=== PATIENT | female | born 1950 | race Caucasian/White ===

== ENCOUNTER 2017-09-28 12:19 | Inpatient (IN) ==
[2017-09-28] MEDS ORDERED: ALBUTEROL/IPRATROPIUM 2.5mg-0.5mg/3ml NEB AEROSOL ONE (13:20)
[2017-09-28] MEDS ORDERED: ONDANSETRON 4 MG/2 ML INJECTION IVP ONE (13:22)
--- NOTE | 2017-09-28 13:23 | Emergency Department Report ---
Asthma HPI - General Stated Complaint: low oxygen, cold cough concestion Time Seen by Provider: 09/28/17 12:57 Source: patient, family Mode of arrival: ambulatory Limitations: no limitations - History of Present Illness HPI Narrative: Jeny Sal is a self proclaimed healthy woman who has not seen a physician since moving to [place] for years because she is healthy. Her only medication is atenolol, eyedrops for glaucoma. She states healthy by taking a variety of herbs. She states that 2 weeks ago and the temperature dropped, she walked outside and immediately felt cold going to her lungs. She knew at that time, she would be sick. She reports "I am allergic to cold". She has been "freezing to ", and has had intermittent low-grade fevers. She has had no appetite for the last 2 weeks. She has been trying to keep up on fluids, taken and about 25-30 ounces per day, although her in the background is shaking his head no. She states that she is monitoring her urine output and has looked clear. She also reports some diarrhea with urgency, as well as urinary urgency. She states she's lost 14 pounds over the last 2 weeks. She is unable to sleep well, and has to sleep sitting up. She reports consult the time, but is unproductive. Her has a "you can hear the rattling in her chest". She denies any sinus congestion or drainage. She denies sore throat or dysphagia. She reports dizziness, and lightheadedness, and near syncope when she stands up or changes position. She feels weak in general. She also reports leg swelling. She denies myalgias, but reports chronic left knee pain. As far as exposures go , she states that her was sick with "the crud" for 6 days before she fell ill. Onset (ago): week(s) (2) Severity: moderate Associated symptoms: dry cough, fever - Related Data Current Asthma Therapy: none Home Medications Medication Instructions Recorded Confirmed Timolol Maleate [Timoptic] 1 drop RIGHT EYE BID 09/28/17 09/28/17 Allergies Allergy/AdvReac Type Severity Reaction Status Date / Time lidocaine Allergy Unknown VERY Unverified 09/28/17 13:20 TINGLY ALL OVER BODY procaine Allergy Unknown TINGLY ALL Unverified 09/28/17 13:20 OVER BODY cephalexin AdvReac Unknown CAUSES UTI Unverified 09/28/17 13:20 VITAMIN K Allergy Unknown WATER Uncoded 09/28/17 13:20 BLISTERS, ANAPHLAXIS Review of Systems All systems: reviewed and negative except as stated Constitutional: Reports: as per HPI Eyes: Reports: as per HPI ENT: Reports: as per HPI Cardiovascular: Denies: chest pain, palpitations Respiratory: Reports: as per HPI, other ( reports that she snores) Gastrointestinal: Reports: as per HPI Genitourinary: Reports: as per HPI Musculoskeletal: Reports: as per HPI Integumentary: Denies: rash, wounds Neurological: Reports: as per HPI Psychiatric: Denies: anxiety, depression Endocrine: Reports: heat or cold intolerance Hematological/Lymphatic: Denies: easy bruising Allergic/Immunologic: Denies: urticaria PFSH Glaucoma Surgical History: SHAYY/BSO age 27. Rectal fistula repair. Lumpectomy in 1991 Family History: Maternal grandmother had kidney cancer. Mother might have had COPD No history of heart disease in the family - Social History Smoking status: Never smoker Substance use type: does not use Alcohol intake frequency: does not drink Household members: spouse Current occupational status: retired Physical Exam - Limitations Limitations: no limitations - General General appearance: alert, in no apparent distress - Head Head exam: atraumatic - Eye Eye exam: Present: PERRL - ENT ENT exam: Present: normal exam - Neck Neck exam: Present: normal inspection - Respiratory Respiratory exam: Present: wheezes (rare), other (coarse and decreased breath sounds) - Cardiovascular Cardiovascular exam: Present: regular rate - Abdominal Exam Abdominal exam: Present: soft, normal bowel sounds. Absent: tenderness, guarding - Extremities Exam Extremities exam: Present: normal inspection - Skin Skin exam: Present: warm, dry, intact - Neurological Exam Neurological exam: Present: alert, oriented X3, CN II-XII intact - Psychiatric Psychiatric exam: Present: normal affect Course Course Narrative: Sepsis w/u DuoNeb Zofran IVF - Consultations Consultation #1: Dr. Hahn Time: 14:42 (Admit to medical, dx CAP) Vital Signs Temperature 100.2 F 09/28/17 12:25 Pulse Rate 110 H 09/28/17 12:25 Respiratory Rate 20 09/28/17 12:25 Blood Pressure 180/79 H 09/28/17 12:25 Pulse Oximetry 88 L 09/28/17 12:25 Temperature 100.2 F 09/28/17 12:25 Pulse Rate 110 H 09/28/17 12:25 Respiratory Rate 20 09/28/17 12:25 Blood Pressure 180/79 H 09/28/17 12:25 Pulse Oximetry 88 L 09/28/17 12:25 Dyspnea - MDM Narrative Medical decision making narrative: CXR = LLL pneumonia WBC elevated 14, K 3.0 --> oral KDur given (only 20 mEq d/t nausea and very little PO intake) mild temp at 100.2; tachycardic; hypoxic on room air 88% Rocephin and azithro ordered Will admit to hospitalists - Differential Diagnosis Differential diagnosis: Likely: Pneumonia - Lab Data Attestation: I reviewed the patient's lab results. Result diagrams: 09/28/17 13:53 09/28/17 13:53 Lab Results 09/28/17 09/28/17 09/28/17 Range/Units 13:53 13:53 13:53 WBC 14.0 H (4.5-11.0) T/MM3 RBC 4.20 (4.00-5.20) M/MM3 Hgb 13.1 (12-16) GM/DL Hct 39.3 (36-46) % MCV 93.6 (80-100) UM3 MCH 31.2 (26-34) UUG MCHC 33.3 (31-37) GM/DL RDW Std Deviation 43.2 (36.9-50.2) FL Plt Count 274 (130-400) T/MM3 MPV 9.7 (9.4-12.4) UM3 Immature Gran % (Auto) Not performed Neut % (Auto) Not performed Lymph % (Auto) Not performed Union % (Auto) Not performed Eos % (Auto) Not performed Baso % (Auto) Not performed Neut # (Auto) Not performed Lymph # (Auto) Not performed Union # (Auto) Not performed Eos # (Auto) Not performed Baso # (Auto) Not performed Abs Immat Gran (auto) Not performed Neutrophils % (Manual) 72.0 H (33-66) % Band Neutrophils % 7.0 H (0-6) % Lymphocytes % (Manual) 12.0 L (23-45) % Monocytes % (Manual) 9.0 (0-9.0) % Neutrophils # (Manual) 10.1 H (1.8-7.7) T/MM3 Band Neutrophils # 1.0 T/MM3 Lymphocytes # (Manual) 1.7 (1-4.8) T/MM3 Monocytes # (Manual) 1.3 H (0-0.8) T/MM3 RBC Morph Comment Normal Turbidity < 20 (0-20) Sodium 139 (134-144) MEQ/L Potassium 3.0 L (3.6-5) MEQ/L Chloride 99 (98-107) MEQ/L Carbon Dioxide 29 (22-30) MEQ/L Anion Gap 11 (5-15) MEQ/L BUN 11.0 (7-17) MG/DL Creatinine 0.7 (0.7-1.2) MG/DL GFR Calculation 83 BUN/Creatinine Ratio 16 (6-26) RATIO Glucose 118 H (65-110) MG/DL Calculated Osmolality 268 (261-280) MOSM/KG Calcium 9.3 (8.4-10.2) MG/DL Magnesium (1.6-2.3) MG/DL Total Bilirubin 0.90 (0.20-1.30) MG/DL Icterus Index < 2 (0-7) AST 89 H (14-36) U/L ALT 104 H (9-52) U/L Alkaline Phosphatase 102 (38-126) U/L Total Protein 8.4 H (6.3-8.2) G/DL Albumin 4.3 (3.5-5.0) G/DL Globulin 4.1 H (2.4-3.6) G/DL Albumin/Globulin Ratio 1.0 L (1.1-2.2) RATIO Plasma Lactate 1.3 (0.6-2.2) MMOL/L Procalcitonin 0.38 NG/ML Specimen Hemolysis < 15 (0-25) 09/28/17 Range/Units 13:53 WBC (4.5-11.0) T/MM3 RBC (4.00-5.20) M/MM3 Hgb (12-16) GM/DL Hct (36-46) % MCV (80-100) UM3 MCH (26-34) UUG MCHC (31-37) GM/DL RDW Std Deviation (36.9-50.2) FL Plt Count (130-400) T/MM3 MPV (9.4-12.4) UM3 Immature Gran % (Auto) Neut % (Auto) Lymph % (Auto) Union % (Auto) Eos % (Auto) Baso % (Auto) Neut # (Auto) Lymph # (Auto) Union # (Auto) Eos # (Auto) Baso # (Auto) Abs Immat Gran (auto) Neutrophils % (Manual) (33-66) % Band Neutrophils % (0-6) % Lymphocytes % (Manual) (23-45) % Monocytes % (Manual) (0-9.0) % Neutrophils # (Manual) (1.8-7.7) T/MM3 Band Neutrophils # T/MM3 Lymphocytes # (Manual) (1-4.8) T/MM3 Monocytes # (Manual) (0-0.8) T/MM3 RBC Morph Comment Turbidity (0-20) Sodium (134-144) MEQ/L Potassium (3.6-5) MEQ/L Chloride (98-107) MEQ/L Carbon Dioxide (22-30) MEQ/L Anion Gap (5-15) MEQ/L BUN (7-17) MG/DL Creatinine (0.7-1.2) MG/DL GFR Calculation BUN/Creatinine Ratio (6-26) RATIO Glucose (65-110) MG/DL Calculated Osmolality (261-280) MOSM/KG Calcium (8.4-10.2) MG/DL Magnesium 2.4 H (1.6-2.3) MG/DL Total Bilirubin (0.20-1.30) MG/DL Icterus Index (0-7) AST (14-36) U/L ALT (9-52) U/L Alkaline Phosphatase (38-126) U/L Total Protein (6.3-8.2) G/DL Albumin (3.5-5.0) G/DL Globulin (2.4-3.6) G/DL Albumin/Globulin Ratio (1.1-2.2) RATIO Plasma Lactate (0.6-2.2) MMOL/L Procalcitonin NG/ML Specimen Hemolysis (0-25) - Radiology Data Attestation: I reviewed the patient's radiology results. CXR shows LLL infiltrate Critical Care Time Critical Care Time: No Disposition Clinical Impression: CAP (community acquired pneumonia) Disposition: 02 To [facility] [place] Acute Care Condition: Stable Prescriptions: No Action Timolol Maleate [Timoptic] 1 drop RIGHT EYE BID Time of Disposition: 15:01 - Seen By: kathryn
--- NOTE | 2017-09-28 13:48 | XRay Report ---
INDICATION: soa, fever, cough PROCEDURE: CHEST 2-VIEWS UPRIGHT (PA & LAT) Encounter: Initial COMPARISON: None FINDINGS: Dense consolidation in the posterior left lower lobe with density in the retrocardiac region and overlying the lower thoracic spine. Right lung appears clear except for a calcified granuloma in the right middle lobe. No pneumothorax. Trace left effusion. Heart size and mediastinal contours are within normal limits. Pulmonary vascularity is normal. Impression: Left lower lobe pneumonia. .
[2017-09-28] MEDS ORDERED: AZITHROMYCIN IV 500 MG in NS 250ml 250 ML IV ONE (14:33)
[2017-09-28] MEDS ORDERED: CEFTRIAXONE 1 G INJECTION IM SCH (14:45)
[2017-09-28] MEDS ORDERED: CEFTRIAXONE (ER USE ONLY) 1 GM in NS 100 ML IV ONE (14:56)
--- NOTE | 2017-09-28 16:20 | History & Physical Report ---
History of Present Illness Date: 09/28/17 Chief complaint: shortness of breath HPI: Jeny is a 67 yo female who presents to ER with 2 wk h/o SOA and progressively worsening cough. with similar sxs recently. She's tried multiple OTC remedies with no relief. She c/o exhaustion, chills, cough, nausea, diarrhea and anorexia. She does not have a PCP as she moved here 4 years ago from [place] and has not needed to seek healthcare. She usually uses herbal remedies. She denies any past medical problems. States she sees Dr. Iqbal for "prevention of glaucoma." Review of Systems All systems PM: 10-point ROS was reviewed, no additional remarkable complaints except Review of systems: exhausted, fever, chills, cough, SOA, achy Past Medical History Patient Stated Medical History Glaucoma Surgical History: SHAYY/BSO age 27 secondary to endometriosis. Rectal fistula repair. Lumpectomy (R)in 1991 (no cancer) Family History: Father age 59 in an accident Mother - of complications from "asthma" Sister - fibromyalgia and multiple neck and back surgeries Family History Updates: updated - Social History Smoking status: Never smoker Substance use type: does not use Alcohol intake frequency: does not drink Housing: house Household members: spouse Current occupational status: retired Social history: No PCP. Uses herbal remedies. Medications Home Medications Medication Instructions Recorded Confirmed Type Timolol Maleate [Timoptic] 1 drop RIGHT EYE BID 09/28/17 09/28/17 History Allergies Allergy/AdvReac Type Severity Reaction Status Date / Time lidocaine Allergy Unknown VERY Unverified 09/28/17 13:20 TINGLY ALL OVER BODY procaine Allergy Unknown TINGLY ALL Unverified 09/28/17 13:20 OVER BODY cephalexin AdvReac Unknown CAUSES UTI Unverified 09/28/17 13:20 VITAMIN K Allergy Unknown WATER Uncoded 09/28/17 13:20 BLISTERS, ANAPHLAXIS Exam Vital Signs: Temperature 100.2 F 09/28/17 12:25 Pulse Rate 98 09/28/17 15:45 Respiratory Rate 18 09/28/17 14:53 Blood Pressure 156/77 H 09/28/17 14:40 Pulse Oximetry 92 09/28/17 15:45 - Constitutional Present: no acute distress, well nourished, well developed - Routine HEENT Exam Head: Present: normocephalic, atraumatic Eye: Present: EOMI, PERRL ENT: Present: mucous membranes moist, dentition normal Comments: yellow drainage from L eye - Routine Neck Exam Present: supple. Absent: lymphadenopathy, thyromegaly - Routine Respiratory Exam Absent: wheezes Comments: coarse when auscultated anteriorly. Occ end exp wheeze L mid-lung posteriorly. Loose sounding cough. - Routine Cardiovascular Exam Present: RRR. Absent: murmur - Routine Abdominal Exam Present: soft, normoactive bowel sounds, non distended. Absent: tenderness - Routine Extremities Exam Present: no edema, normal capillary refill - Routine Skin Exam Present: dry, warm - Routine Neurological Exam Present: alert, oriented X3, CN II-XII intact - Routine Psychiatric Exam Present: normal affect, cooperative Results - Labs CBC & Chem 7: 09/28/17 13:53 09/28/17 13:53 Labs: Laboratory Tests 09/28/17 09/28/17 09/28/17 13:53 13:53 14:44 Magnesium 2.4 H AST 89 H ALT 104 H Influenza A (H3) PCR Detected A* Laboratory Tests 09/28/17 09/28/17 09/28/17 13:53 13:53 13:53 Band Neutrophils % 7.0 H Plasma Lactate 1.3 Procalcitonin 0.38 - Imaging and Cardiology Chest x-ray Additional comments: Date of Exam: 09/28/17 Ordering Provider: Belinda Barajas APRN Type of Exam(s): XR chest 2V Reason for Exam(s): soa, fever, cough INDICATION: soa, fever, cough PROCEDURE: CHEST 2-VIEWS UPRIGHT (PA & LAT) Encounter: Initial COMPARISON: None FINDINGS: Dense consolidation in the posterior left lower lobe with density in the retrocardiac region and overlying the lower thoracic spine. Right lung appears clear except for a calcified granuloma in the right middle lobe. No pneumothorax. Trace left effusion. Heart size and mediastinal contours are within normal limits. Pulmonary vascularity is normal. Impression: Left lower lobe pneumonia. Assessment and Plan (1) CAP (community acquired pneumonia) Current visit: Yes Status: Acute Assessment and Plan: Assessment Sepsis - based on pulmonary source of infection and SIRS criteria of temp of 101.2, tachycardia and leukocytosis Qsofa score 1 Acute respiratory failure with hypoxia requiring 2L O2. Initial sats on RA 88%. Community acquired pneumonia - L lower lobe Influenza A Hypokalemia - POA Plan Admit to IP under hospitalist service (Dr Hahn attending) for treatment of CAP. Stay expected to exceed 2 overnights due to hypoxia and infection. Labs and CXR performed in ER. 1st dose of atbx given in ER. 1L NS given in ER. Rocephin and Zithromax for antimicrobial coverage. Collect sputum culture. Will defer tx with Tamiflu given the length of time she has been ill. Duonebs, acapella, cough syrup PRN Replace potassium. Run fluids at 100ml/hr for rehydration. Repeat CBC and BMP in am to follow WBC and electrolytes. Patient wishes to be a DNR. She will need to establish with a PCP on dismissal. DVT Prophylaxis: SCD's Resuscitation Status: Do Not Resuscitate - Physician Narrative Physician: Jorge Luis Hahn MD Narrative: Date: 09/28/17 Time: 1616 I have independently interviewed and examined pt. Chart reviewed. Case discussed with PA. Care plan developed with my supervision; agree with above. Patient says she has been struggling with cough, chills, dyspnea for 15 days. She reports having some nausea and diarrhea the past 3-4 days. She is aware she has gotten very weak and sometimes can't stand. Lungs: coarse. CV: regular. ABD: s/nt/nd. MSE: awake alert appropriate Plan: Inpatient admission for CAP. Ceftriaxone and azithromycin started in ER. Duonebs available. Zofran for nausea. K+ replaced in ER. Recheck in AM. PT/OT for debilitation. Home medication (Timoptic) reviewed and continued. Lovenox for DVT ppx. Hospital Course Summary Disclaimer: The visit summary below is not to be considered part of the above Progress Note. Hospital Course: Assessment Sepsis - based on pulmonary source of infection and SIRS criteria of temp of 101.2, tachycardia and leukocytosis Qsofa score 1 Acute respiratory failure with hypoxia requiring 2L O2. Initial sats on RA 88%. Community acquired pneumonia - L lower lobe Influenza A Hypokalemia - POA 09/28/17 - Hospital admission Admit to IP under hospitalist service (Dr Hahn attending) for treatment of CAP. Stay expected to exceed 2 overnights due to hypoxia and infection. Labs and CXR performed in ER. 1st dose of atbx given in ER. 1L NS given in ER. Rocephin and Zithromax for antimicrobial coverage. Collect sputum culture. Will defer tx with Tamiflu given the length of time she has been ill. Duonebs, acapella, cough syrup PRN Replace potassium. Run fluids at 100ml/hr for rehydration. Repeat CBC and BMP in am to follow WBC and electrolytes. Patient wishes to be a DNR. She will need to establish with a PCP on dismissal.
[2017-09-28 16:25] VITALS: BMI 33.7
[2017-09-28] MEDS: NS 1,000 ML IV SCH (17:22)
[2017-09-28] MEDS ORDERED: ONDANSETRON 4 MG/2 ML INJECTION IVP PRN (17:34)
[2017-09-28] MEDS: ENOXAPARIN 40 MG/0.4 ML INJECTION SQ SCH (18:49)
[2017-09-28] MEDS: ALBUTEROL/IPRATROPIUM 2.5mg-0.5mg/3ml NEB AEROSOL SCH (18:55)
[2017-09-28] MEDS: GUAIFENESIN/D-METHORPHAN 600mg/30mg TABLET PO SCH (21:45)
[2017-09-28] MEDS: ACETAMINOPHEN 325 MG TABLET PO PRN (22:21)
[2017-09-29] MEDS: NS 1,000 ML IV SCH ×2 (04:37→14:41)
[2017-09-29] MEDS: ALBUTEROL/IPRATROPIUM 2.5mg-0.5mg/3ml NEB AEROSOL SCH ×4 (07:37→21:10)
[2017-09-29] MEDS: CEFTRIAXONE 1 G in NS 100 ML IV SCH (08:31)
[2017-09-29] MEDS: GUAIFENESIN/D-METHORPHAN 600mg/30mg TABLET PO SCH ×2 (08:31→21:46)
[2017-09-29] MEDS: ENOXAPARIN 40 MG/0.4 ML INJECTION SQ SCH (08:31)
[2017-09-29] MEDS: AZITHROMYCIN 250 MG TABLET PO SCH (08:32)
--- NOTE | 2017-09-29 10:42 | Progress Note ---
- Date 09/29/17 Subjective: Patient is seen sitting up in bed finishing breakfast. She states she had a very rough night. She had a high temperature overnight. She had trouble breathing. Continues to have a nonproductive cough which is very bothersome to her. She continues on 2 L of oxygen. She reports she does have an appetite. No chest pain, nausea or vomiting. Objective Vital signs: Temperature 97.2 F 09/29/17 08:00 Pulse Rate 96 09/29/17 08:00 Respiratory Rate 20 09/29/17 08:00 Blood Pressure 127/68 09/29/17 08:00 Pulse Oximetry 90 09/29/17 08:00 Height/Weight/BMI: Height 1.65 m Weight 91.3 kg Body Mass Index 33.7 - Constitutional Present: no acute distress, well nourished, well developed - Routine HEENT Exam Head: Present: normocephalic, atraumatic - Routine Respiratory Exam Comments: Coarse breath sounds throughout. - Routine Cardiovascular Exam Present: RRR. Absent: murmur - Routine Abdominal Exam Present: soft, normoactive bowel sounds, non distended. Absent: tenderness - Routine Extremities Exam Present: no edema, normal capillary refill - Routine Skin Exam Present: dry, warm - Routine Neurological Exam Present: alert, oriented X3 - Routine Lymphatic Exam Lymphatic: Absent: adenopathy - Routine Psychiatric Exam Present: normal affect, cooperative Results - Labs CBC & Chem 7: 09/29/17 04:27 09/29/17 04:27 Assessment and Plan (1) CAP (community acquired pneumonia) Current visit: Yes Status: Acute Assessment and Plan: Assessment Sepsis - based on pulmonary source of infection and SIRS criteria of temp of 101.2, tachycardia and leukocytosis Qsofa score 1 Acute respiratory failure with hypoxia requiring 2L O2. Initial sats on RA 88%. Community acquired pneumonia - L lower lobe Influenza A Hypokalemia - POA Plan Continue Rocephin and Zithromax for antimicrobial coverage. Has been unable to produce a specimen for sputum culture. Tx with Tamiflu deferred given length of her symptoms prior to admission. Continue Duonebs, acapella, O2 PRN, add Pulmicort. Leukocytosis is improving. CBC in a.m. Potassium 3.0-->3.2 today despite 60 mEq potassium given yesterday.. Will give 40 mEq potassium now and repeat again at lunch. Repeat CMP in a.m. to follow electrolytes and elevated LFTs on admission. DVT Prophylaxis: SCD's, Lovenox Resuscitation Status: Do Not Resuscitate - Physician Narrative Physician: Jorge Luis Hahn MD Narrative: Date: 09/29/17 Time: 1650 I have independently interviewed and examined pt. Chart reviewed. Case discussed with PA. Care plan developed with my supervision; agree with above. Patient says she had a rough night b/c of fever but is feeling a little better today. No change in cough. She refused cough meds earlier. Lungs: coarse. CV: regular. ABD: s/nt/nd. MSE: awake alert appropriate Plan: Ceftriaxone and azithromycin. Duonebs, Pulmicort, Mucinex available. Zofran for nausea. K+ replacement. PT/OT for debilitation. Lovenox for DVT ppx. Hospital Course Summary Disclaimer: The visit summary below is not to be considered part of the above Progress Note. Hospital Course: Assessment Sepsis - based on pulmonary source of infection and SIRS criteria of temp of 101.2, tachycardia and leukocytosis Qsofa score 1 Acute respiratory failure with hypoxia requiring 2L O2. Initial sats on RA 88%. Community acquired pneumonia - L lower lobe Influenza A Hypokalemia - POA 09/28/17 - Hospital admission Admit to IP under hospitalist service (Dr Hahn attending) for treatment of CAP. Stay expected to exceed 2 overnights due to hypoxia and infection. Labs and CXR performed in ER. 1st dose of atbx given in ER. 1L NS given in ER. Rocephin and Zithromax for antimicrobial coverage. Collect sputum culture. Will defer tx with Tamiflu given the length of time she has been ill. Duonebs, acapella, cough syrup PRN Replace potassium. Run fluids at 100ml/hr for rehydration. Repeat CBC and BMP in am to follow WBC and electrolytes. Patient wishes to be a DNR. She will need to establish with a PCP on dismissal. 09/29/17 Continue Rocephin and Zithromax for antimicrobial coverage. Has been unable to produce a specimen for sputum culture. Tx with Tamiflu deferred given length of her symptoms prior to admission. Continue Duonebs, acapella, O2 PRN, add Pulmicort. Leukocytosis is improving. CBC in a.m. Potassium 3.0-->3.2 today despite 60 mEq potassium given yesterday.. Will give 40 mEq potassium now and repeat again at lunch. Repeat CMP in a.m. to follow electrolytes and elevated LFTs on admission.
[2017-09-29] MEDS: BUDESONIDE INH.SOLN 0.5mg/2ml NEB AEROSOL SCH ×2 (11:40→21:10)
[2017-09-29] MEDS: TIMOLOL 0.5% EYE DROPS 5 ML EACH EYE SCH (23:38)
[2017-09-30] MEDS: NS 1,000 ML IV SCH ×2 (00:27→09:46)
[2017-09-30] MEDS: PROMETHAZINE/CODEINE ORAL LIQUID 5ml PO PRN ×2 (01:35→20:32)
[2017-09-30] MEDS: ENOXAPARIN 40 MG/0.4 ML INJECTION SQ SCH (08:43)
[2017-09-30] MEDS: AZITHROMYCIN 250 MG TABLET PO SCH (08:43)
[2017-09-30] MEDS: TIMOLOL 0.5% EYE DROPS 5 ML EACH EYE SCH ×2 (08:43→20:22)
[2017-09-30] MEDS: GUAIFENESIN/D-METHORPHAN 600mg/30mg TABLET PO SCH ×2 (08:43→20:22)
[2017-09-30] MEDS: CEFTRIAXONE 1 G in NS 100 ML IV SCH (08:43)
[2017-09-30] MEDS: BUDESONIDE INH.SOLN 0.5mg/2ml NEB AEROSOL SCH ×2 (10:04→19:36)
[2017-09-30] MEDS: ALBUTEROL/IPRATROPIUM 2.5mg-0.5mg/3ml NEB AEROSOL SCH ×4 (10:04→19:36)
[2017-09-30] MEDS: ACETAMINOPHEN 325 MG TABLET PO PRN ×2 (11:54→21:22)
--- NOTE | 2017-09-30 14:52 | Progress Note ---
- Date 09/30/17 Subjective: Jeny is seen around lunchtime, resting in bed. She states that she has been extremely fatigued as she has been sick for over 2 weeks now and not sleeping well until last night. She is currently on 0.5 L by nasal canula. She state that her appetite is improving. She is working on ambulation 3 times a day as she feels extremely weak. Objective Vital signs: Temperature 100.4 F 09/30/17 07:46 Pulse Rate 86 09/30/17 12:00 Respiratory Rate 18 09/30/17 12:00 Blood Pressure 156/80 H 09/30/17 12:00 Pulse Oximetry 92 09/30/17 12:00 Height/Weight/BMI: Height 1.65 m Weight 92.3 kg Body Mass Index 33.7 - Constitutional Present: no acute distress, well nourished, well developed - Routine HEENT Exam Eye: Present: EOMI ENT: Present: mucous membranes moist, dentition normal - Routine Respiratory Exam Present: CTA bilaterally. Absent: wheezes - Routine Cardiovascular Exam Present: RRR, S1, S2. Absent: murmur - Routine Abdominal Exam Present: soft, normoactive bowel sounds, non distended. Absent: tenderness - Routine Extremities Exam Present: normal capillary refill - Routine Skin Exam Present: dry, warm - Routine Neurological Exam Present: alert, oriented X3, CN II-XII intact - Routine Lymphatic Exam Lymphatic: Absent: adenopathy - Routine Psychiatric Exam Present: normal affect, cooperative Results - Labs CBC & Chem 7: 09/30/17 04:39 09/30/17 04:39 Microbiology Results: Microbiology 09/29/17 19:10 Sputum, Expectorated Gram Stain - Final 09/29/17 19:10 Sputum, Expectorated Sputum Culture - Preliminary Culture Initiated - Results Pending Assessment and Plan (1) CAP (community acquired pneumonia) Current visit: Yes Status: Acute Assessment and Plan: Assessment Sepsis - based on pulmonary source of infection and SIRS criteria of temp of 101.2, tachycardia and leukocytosis Qsofa score 1 Acute respiratory failure with hypoxia requiring 2L O2. Initial sats on RA 88%. Community acquired pneumonia - L lower lobe Influenza A Hypokalemia - POA Plan Continue Rocephin and Zithromax for antimicrobial coverage. Continue Duonebs, acapella, and Pulmicort. Working on weaning down oxygen Continued ambulation TID. Concern about weakness as she lives independently with . Labs reviewed, leukocytosis resolved, hypokalemia-improved, continued elevated LFTs - Physician Narrative Physician: Jorge Luis Hahn MD Narrative: Date: 09/30/17 Time: 1600 I have independently interviewed and examined pt. Chart reviewed. Case discussed with EVENT SALES ASSISTANT. Care plan developed with my supervision; agree with above. Patient c/o fever earlier. Temp was 100.4 twice this AM. Better after Tylenol. She says she feels weaker today after walking 3 times a day. Lungs: clearing. CV: regular. ABD: s/nt/nd. MSE: awake alert appropriate Plan: Ceftriaxone and azithromycin. Duonebs, Pulmicort, Mucinex available. Titrating O2. Given continued fevers, repeat CXR. PT/OT for debilitation. Encourage activity. Lovenox for DVT ppx. Hospital Course Summary Disclaimer: The visit summary below is not to be considered part of the above Progress Note. Hospital Course: Assessment Sepsis - based on pulmonary source of infection and SIRS criteria of temp of 101.2, tachycardia and leukocytosis Qsofa score 1 Acute respiratory failure with hypoxia requiring 2L O2. Initial sats on RA 88%. Community acquired pneumonia - L lower lobe Influenza A Hypokalemia - POA 09/28/17 - Hospital admission Admit to IP under hospitalist service (Dr Hahn attending) for treatment of CAP. Stay expected to exceed 2 overnights due to hypoxia and infection. Labs and CXR performed in ER. 1st dose of atbx given in ER. 1L NS given in ER. Rocephin and Zithromax for antimicrobial coverage. Collect sputum culture. Will defer tx with Tamiflu given the length of time she has been ill. Duonebs, acapella, cough syrup PRN Replace potassium. Run fluids at 100ml/hr for rehydration. Repeat CBC and BMP in am to follow WBC and electrolytes. Patient wishes to be a DNR. She will need to establish with a PCP on dismissal. 09/29/17 Continue Rocephin and Zithromax for antimicrobial coverage. Has been unable to produce a specimen for sputum culture. Tx with Tamiflu deferred given length of her symptoms prior to admission. Continue Duonebs, acapella, O2 PRN, add Pulmicort. Leukocytosis is improving. CBC in a.m. Potassium 3.0-->3.2 today despite 60 mEq potassium given yesterday.. Will give 40 mEq potassium now and repeat again at lunch. Repeat CMP in a.m. to follow electrolytes and elevated LFTs on admission. 09/30/17 Continue Rocephin and Zithromax for antimicrobial coverage. Continue Duonebs, acapella, and Pulmicort. Working on weaning down oxygen Continued ambulation TID. Concern about weakness as she lives independently with . Labs reviewed, leukocytosis resolved, hypokalemia-improved, continued elevated LFTs
[2017-10-01] MEDS: BUDESONIDE INH.SOLN 0.5mg/2ml NEB AEROSOL SCH ×2 (07:20→20:03)
[2017-10-01] MEDS: ALBUTEROL/IPRATROPIUM 2.5mg-0.5mg/3ml NEB AEROSOL SCH ×4 (07:20→20:03)
[2017-10-01] MEDS: CEFTRIAXONE 1 G in NS 100 ML IV SCH (08:38)
[2017-10-01] MEDS: GUAIFENESIN/D-METHORPHAN 600mg/30mg TABLET PO SCH ×2 (08:38→20:23)
[2017-10-01] MEDS: TIMOLOL 0.5% EYE DROPS 5 ML EACH EYE SCH ×2 (08:38→20:23)
[2017-10-01] MEDS: AZITHROMYCIN 250 MG TABLET PO SCH (08:39)
[2017-10-01] MEDS: ENOXAPARIN 40 MG/0.4 ML INJECTION SQ SCH (08:39)
--- NOTE | 2017-10-01 10:01 | XRay Report ---
Indication: pneumonia PROCEDURE: XR chest 1V: Encounter: Initial Comparison: September 28, 2017 Findings: Left lower lobe consolidation remains with increasing small left effusion. Right lower lobe granuloma. No pneumothorax. Heart size and mediastinal contours are stable. Pulmonary vascularity is normal. Impression: Increasing small left effusion. .
--- NOTE | 2017-10-01 14:53 | Progress Note ---
- Date 10/01/17 Subjective: Jeny is seen today in follow up. She continues to feel weak and deconditioned. Is motivated to improve, is walking in with family assistance. Reports she continues to run a fever of 101, and does not feel well if it is allowed to persist. Had fairly severe fatigue last night, which is now better. Still with persistent cough, SOA, wheezing. Objective Vital signs: Temperature 100.7 F H 10/01/17 11:24 Pulse Rate 85 10/01/17 11:24 Respiratory Rate 22 10/01/17 11:50 Blood Pressure 145/86 H 10/01/17 11:24 Pulse Oximetry 96 10/01/17 11:50 Height/Weight/BMI: Height 1.65 m Weight 92.9 kg Body Mass Index 33.7 - Constitutional Present: mild distress, obese, cooperative - Routine HEENT Exam Head: Present: normocephalic, atraumatic Eye: Present: EOMI, PERRL, normal accommodation ENT: Present: mucous membranes moist - Routine Respiratory Exam Present: dyspnea, decreased breath sounds (Left base), wheezes (Left exp wheezes ) Comments: Fairly good air movement despite illness. Coarse, nonproductive cough. - Routine Cardiovascular Exam Present: RRR, S1, S2, no murmur - Routine Abdominal Exam Present: soft, normoactive bowel sounds, non distended, non tender - Routine Extremities Exam Present: no edema, non tender. Absent: cyanosis, clubbing - Routine Skin Exam Present: intact, dry, warm - Routine Neurological Exam Present: alert, oriented X3, moving all extremities - Routine Psychiatric Exam Present: normal affect, normal thought process, cooperative Results - Labs CBC & Chem 7: 10/01/17 04:12 10/01/17 04:12 Microbiology Results: Microbiology 09/29/17 19:10 Sputum, Expectorated Gram Stain - Final 09/29/17 19:10 Sputum, Expectorated Sputum Culture - Preliminary Normal Resp Kristin incl. Yeast - Imaging and Cardiology Chest x-ray Status: image reviewed by me Additional comments: PROCEDURE: XR chest 1V: Encounter: Initial Comparison: September 28, 2017 Findings: Left lower lobe consolidation remains with increasing small left effusion. Right lower lobe granuloma. No pneumothorax. Heart size and mediastinal contours are stable. Pulmonary vascularity is normal. Impression: Increasing small left effusion. Assessment and Plan (1) CAP (community acquired pneumonia) Current visit: Yes Status: Acute Assessment and Plan: Assessment Sepsis - based on pulmonary source of infection and SIRS criteria of temp of 101.2, tachycardia and leukocytosis Qsofa score 1 Acute respiratory failure with hypoxia requiring 2L O2. Initial sats on RA 88%. Community acquired pneumonia - L lower lobe Influenza A Hypokalemia - POA Possible pleural effusion Hypertension Plan 10/01/17 She continues to run intermittent fevers. CXR reviewed- left pleural effusion is increasing. Worsening bandemia today as well. Given persistent fever, concerned with loculated effusion/empyema. Will assess PA & Lat CXR in AM, but may need CT of chest. Will DC azithro and add Levaquin for broader coverage. Assess S.Pneumo Urine. Continue nebs, Acapella, O2. Replace KCL today. BP trending up- Add low dose Norvasc for now. Labs in AM. DVT Prophylaxis: Lovenox Resuscitation Status: Do Not Resuscitate - Physician Narrative Physician: Jorge Luis Hahn MD Narrative: Date: 10/01/17 Time: 1540 I have independently interviewed and examined pt. Chart reviewed. Case discussed with PROFESSOR OF SURGERY. Care plan developed with my supervision; agree with above. Patient c/o fever earlier. Temp was 101.4 last night. Temp of 100.7 earlier today. Says she is feeling better. Thinks her breathing is improved. Cough is about the same. Planning to get 3 walks in today. Lungs: clearing. CV: regular. ABD: s/nt/nd. MSE: awake alert appropriate Plan: Ceftriaxone and Levaquin. Duonebs, Pulmicort, Mucinex available. Titrating O2. CXR showed small effusion, no worsening of pneumonia. PT/OT for debilitation. Encourage activity. Replace K. Lovenox for DVT ppx. Hospital Course Summary Disclaimer: The visit summary below is not to be considered part of the above Progress Note. Hospital Course: Assessment Sepsis - based on pulmonary source of infection and SIRS criteria of temp of 101.2, tachycardia and leukocytosis Qsofa score 1 Acute respiratory failure with hypoxia requiring 2L O2. Initial sats on RA 88%. Community acquired pneumonia - L lower lobe Influenza A Hypokalemia - POA 09/28/17 - Hospital admission Admit to IP under hospitalist service (Dr Hahn attending) for treatment of CAP. Stay expected to exceed 2 overnights due to hypoxia and infection. Labs and CXR performed in ER. 1st dose of atbx given in ER. 1L NS given in ER. Rocephin and Zithromax for antimicrobial coverage. Collect sputum culture. Will defer tx with Tamiflu given the length of time she has been ill. Duonebs, acapella, cough syrup PRN Replace potassium. Run fluids at 100ml/hr for rehydration. Repeat CBC and BMP in am to follow WBC and electrolytes. Patient wishes to be a DNR. She will need to establish with a PCP on dismissal. 09/29/17 Continue Rocephin and Zithromax for antimicrobial coverage. Has been unable to produce a specimen for sputum culture. Tx with Tamiflu deferred given length of her symptoms prior to admission. Continue Duonebs, acapella, O2 PRN, add Pulmicort. Leukocytosis is improving. CBC in a.m. Potassium 3.0-->3.2 today despite 60 mEq potassium given yesterday.. Will give 40 mEq potassium now and repeat again at lunch. Repeat CMP in a.m. to follow electrolytes and elevated LFTs on admission. 09/30/17 Continue Rocephin and Zithromax for antimicrobial coverage. Continue Duonebs, acapella, and Pulmicort. Working on weaning down oxygen Continued ambulation TID. Concern about weakness as she lives independently with . Labs reviewed, leukocytosis resolved, hypokalemia-improved, continued elevated LFTs 10/01/17 She continues to run intermittent fevers. CXR reviewed- left pleural effusion is increasing. Worsening bandemia today as well. Given persistent fever, concerned with loculated effusion/empyema. Will assess PA & Lat CXR in AM, but may need CT of chest. Will DC azithro and add Levaquin for broader coverage. Assess S.Pneumo Urine. Continue nebs, Acapella, O2. Replace KCL today. BP trending up- Add low dose Norvasc for now. Labs in AM.
[2017-10-01] MEDS ORDERED: LEVOFLOXACIN PB 750 MG/150 ML BAG IV SCH (15:00)
[2017-10-01] MEDS: AMLODIPINE 2.5 MG TABLET PO SCH (15:56)
[2017-10-01] MEDS: PROMETHAZINE/CODEINE ORAL LIQUID 5ml PO PRN (20:28)
[2017-10-02] MEDS: ALBUTEROL/IPRATROPIUM 2.5mg-0.5mg/3ml NEB AEROSOL SCH ×3 (08:18→15:34)
[2017-10-02] MEDS: CEFTRIAXONE 1 G in NS 100 ML IV SCH ×2 (08:29→10:08)
[2017-10-02] MEDS: TIMOLOL 0.5% EYE DROPS 5 ML EACH EYE SCH (08:30)
[2017-10-02] MEDS: AMLODIPINE 2.5 MG TABLET PO SCH (08:30)
[2017-10-02] MEDS: ENOXAPARIN 40 MG/0.4 ML INJECTION SQ SCH (08:30)
[2017-10-02] MEDS: GUAIFENESIN/D-METHORPHAN 600mg/30mg TABLET PO SCH (08:30)
--- NOTE | 2017-10-02 09:28 | XRay Report ---
Indication: effusion XR chest 2V: Comparison: 09/28/2017 and 10/01/2017 Technique: PA and lateral chest Findings: Since the initial examination more prominent infiltrative/atelectasis and small effusion is noted in the left lower chest. Stable right lower chest granulomas noted. Heart and mediastinum are unremarkable. Central vascularity is unchanged. Impression: 1. Increasing fluid and infiltrate/atelectasis in the left base particularly since the initial study. 2. Stable heart and mediastinum. 3. No change in probable granulomatous changes in the right chest. .
[2017-10-02] MEDS: BUDESONIDE INH.SOLN 0.5mg/2ml NEB AEROSOL SCH (09:47)
[2017-10-02 11:57] VITALS: BP 141/72; PULSE 79; TEMP 99.1
[2017-10-02 12:34] VITALS: RESP 24; O2SAT 93
--- NOTE | 2017-10-02 13:20 | Discharge Summary ---
Discharge Information Date of admission: 09/28/17 15:06 Anticipated date of discharge: 10/02/17 Attending Physician: Melquiades Batista MD Consults: None - Discharge Diagnosis (1) CAP (community acquired pneumonia) Status: Acute Sepsis - based on pulmonary source of infection and SIRS criteria of temp of 101.2, tachycardia and leukocytosis- Qsofa score 1 Acute respiratory failure with hypoxia requiring 2L O2. Initial sats on RA 88%. Community acquired pneumonia - L lower lobe Influenza A Hypokalemia - POA - Procedures Procedures: None - Laboratory Labs: 10/02/17 04:31 10/02/17 04:31 - Microbiology Microbiology 09/29/17 19:10 Sputum, Expectorated Gram Stain - Final 09/29/17 19:10 Sputum, Expectorated Sputum Culture - Final Normal Resp Kristin incl. Yeast - Radiology Radiology: 09/28/17- Chest Xray- Impression: Left lower lobe pneumonia. 10/01/17- asked x-ray-small left effusion 10/02/17- Chest Xray- Impression: 1. Increasing fluid and infiltrate/atelectasis in the left base particularly since the initial study. 2. Stable heart and mediastinum. 3. No change in probable granulomatous changes in the right chest. - Pathology None History of Present Illness HPI: Jeny is a 67 yo female who presents to ER with 2 wk h/o SOA and progressively worsening cough. with similar sxs recently. She's tried multiple OTC remedies with no relief. She c/o exhaustion, chills, cough, nausea, diarrhea and anorexia. She does not have a PCP as she moved here 4 years ago from [place] and has not needed to seek healthcare. She usually uses herbal remedies. She denies any past medical problems. States she sees Dr. Iqbal for "prevention of glaucoma." Objective Vital signs: Temperature 99.1 F 10/02/17 11:56 Pulse Rate 79 10/02/17 11:56 Respiratory Rate 24 10/02/17 12:33 Blood Pressure 141/72 H 10/02/17 11:56 Pulse Oximetry 93 10/02/17 12:33 Height/Weight/BMI: Height 1.65 m Weight 92.7 kg Body Mass Index 33.7 - Constitutional Present: no acute distress, well nourished, well developed - Routine HEENT Exam Eye: Present: EOMI ENT: Present: mucous membranes moist, dentition normal - Routine Respiratory Exam Present: CTA bilaterally. Absent: wheezes - Routine Cardiovascular Exam Present: RRR, S1, S2. Absent: murmur - Routine Abdominal Exam Present: soft, normoactive bowel sounds, non distended. Absent: tenderness - Routine Extremities Exam Present: normal capillary refill - Routine Skin Exam Present: intact, dry, warm - Routine Neurological Exam Present: alert, oriented X3, CN II-XII intact, moving all extremities - Routine Lymphatic Exam Lymphatic: Absent: adenopathy - Routine Psychiatric Exam Present: normal affect, cooperative Hospital Course This is a general summary of the patient's hospital course. For more details refer to the complete medical record. Hospital course: Assessment Sepsis - based on pulmonary source of infection and SIRS criteria of temp of 101.2, tachycardia and leukocytosis Qsofa score 1 Acute respiratory failure with hypoxia requiring 2L O2. Initial sats on RA 88%. Community acquired pneumonia - L lower lobe Influenza A Hypokalemia - POA 09/28/17 - Hospital admission Admit to IP under hospitalist service (Dr Hahn attending) for treatment of CAP. Stay expected to exceed 2 overnights due to hypoxia and infection. Labs and CXR performed in ER. 1st dose of atbx given in ER. 1L NS given in ER. Rocephin and Zithromax for antimicrobial coverage. Collect sputum culture. Will defer tx with Tamiflu given the length of time she has been ill. Duonebs, acapella, cough syrup PRN Replace potassium. Run fluids at 100ml/hr for rehydration. Repeat CBC and BMP in am to follow WBC and electrolytes. Patient wishes to be a DNR. She will need to establish with a PCP on dismissal. 09/29/17 Continue Rocephin and Zithromax for antimicrobial coverage. Has been unable to produce a specimen for sputum culture. Tx with Tamiflu deferred given length of her symptoms prior to admission. Continue Duonebs, acapella, O2 PRN, add Pulmicort. Leukocytosis is improving. CBC in a.m. Potassium 3.0-->3.2 today despite 60 mEq potassium given yesterday.. Will give 40 mEq potassium now and repeat again at lunch. Repeat CMP in a.m. to follow electrolytes and elevated LFTs on admission. 09/30/17 Continue Rocephin and Zithromax for antimicrobial coverage. Continue Duonebs, acapella, and Pulmicort. Working on weaning down oxygen Continued ambulation TID. Concern about weakness as she lives independently with . Labs reviewed, leukocytosis resolved, hypokalemia-improved, continued elevated LFTs 10/01/17 She continues to run intermittent fevers. CXR reviewed- left pleural effusion is increasing. Worsening bandemia today as well. Given persistent fever, concerned with loculated effusion/empyema. Will assess PA & Lat CXR in AM, but may need CT of chest. Will DC azithro and add Levaquin for broader coverage. Assess S.Pneumo Urine. Continue nebs, Acapella, O2. Replace KCL today. BP trending up- Add low dose Norvasc for now. 10/02/17- Discharge Jeny is seen and examined today. She is feeling much better today and is off oxygen. Appetite is good. We discussed continued 6 more days of PO Levaquin. Encouraged to use oral Mucinex twice a day to help with expectorant of phlegm. Phenergan with codeine as needed for coughing. Would like patient to establish with primary care as she is planning to be in contact with [facility] under Dr. Jordan for further follow-up. Time spent with patient: discharge greater than 30 minutes Discharge Plan - Discharge Disposition Discharge Date: 10/02/17 Disposition: 01 Discharged Home, Self-Care *Condition: Stable Reason For Visit (Visit label in EMR): pneumonia - Discharge Medications *Discharge Medications: New Acetaminophen [Tylenol] 325 - 650 mg PO Q5H PRN tab PRN Reason: Discomfort Guaifenesin/Dm [Mucinex Dm] 1 tab PO BID tab levoFLOXacin [Levaquin] 500 mg PO ACB #6 tab Promethazine + Cod Liq [Phenergan + Codeine] 5 ml PO Q4-6HR PRN #80 ml PRN Reason: Cough Continue Timolol Maleate [Timoptic] 1 drop RIGHT EYE BID - Discharge Packet/Instructions *Diet: Regular *Activity: Activity as tolerated *Pain Management/Treatment: Tylenol as needed for pain *Wound Care: None Additional Instructions: Take Levaquin antiobiotic for 5 more days. Use OTC Mucinex twice a day. Phenergan with codeine as needed for coughing. Call and establish care with Physician of your choice *Expected Signs/Symptoms: Improvement in strenght *Notify Physician if: increased Fever, worsening coughing, chest pain, vomiting or other concerning symptoms *During Business Hours Contact: Contact PCP *After Business Hours Contact: Oncall Physician or present to the ER *Pending Lab/Results: No Pending Lab - Referrals/Follow Up *Referrals/Follow Up: Chantell Jordan MD [Physician] - - Patient Handouts Patient Handouts: Influenza (DC) - Dismissal Complete Discharge Instructions are:: Complete Physician Narrative - Narrative Physician: Melquiades Batista MD Attestation Narrative: Date: 10/02/17 Time: 1435 I have independently interviewed and examined patient prior to discharge. Chart reviewed. Case discussed with CM and my CHART COMPUTER. Care plan developed with my supervision; agree with above. Doing well this morning. Breathing well-not feeling SOA. Notes minor cough/ congestion. Chest not sore from cough. Eating well. No mouth pain or pain with swallow. Denies ab pain. Strength improving. Feels much better in general. Lungs: decreased, no distress on RA. Good air movement. CV: regular AB: soft nt/nd MSE: awake alert appropriate Plan: Medically stable for discharge to home. See orders for details. Pt to establish care with Dr Jordan and have follow up in about 1 week.
[2017-10-02] MEDS ORDERED: LEVOFLOXACIN 750 MG TABLET PO ONE (13:30)
[2017-10-03] MEDS ORDERED: LEVOFLOXACIN 750 MG TABLET PO SCH (06:30)
== END 2017-10-02 16:05 | disposition home or self-care (01) | DRG 871 ==
LOC: ED 12:19 → MED 15:06 → SUATTDRO 15:06 → MED 16:08
PROVIDERS: ADMIT Hospitalist; ATTEND Hospitalist